=== PATIENT | female | born 1985 | race Caucasian/White ===

== ENCOUNTER 2016-12-20 11:32 | Observation (INO) | payer SELFPAY ==
[~2016-12-20] VITALS: Ht 165.1 cm; Wt 76.0 kg
[~2016-12-20 11:32] MED LIST: METH10TA PO; METHO500 PO; NAPR40TA PO; PAXI20TA26 PO; XANA2TAB2 PO
[2016-12-20 11:37] VITALS: BP 128/62; PULSE 74; RESP 17; TEMP 98.2; O2SAT 98
--- NOTE | 2016-12-20 11:45 | PD ---
Physical Exam Time Seen by Provider: 11:42 Narrative 31yo F w/ c/o pulsating pain from head that radiated to L chest and down R arm. Hx of similar event and told panic attack. Chewed xanax w/ some relief. C/o current L sided chest pain. w/SOB. Denies fever, vomiting. Patient stable. Patient seen in triage. Awaiting bed placement. Data Data Last Documented VS Vital Signs Date Time Temp Pulse Resp B/P Pulse Ox O2 Delivery O2 Flow Rate FiO2 12/20/16 11:37 98.2 74 17 128/62 98 MDM Supervised Visit with MARICRUZ: Ghislaine Gonzalez Dec 20, 2016 11:44
--- NOTE | 2016-12-20 11:56 | PD ---
HPI Chief Complaint: Chest Pain Time Seen by Provider: 11:53 Travel History International Travel<30 days: No Contact w/Intl Traveler<30days: No Traveled to known affect area: No History of Present Illness HPI 31-year-old female presents to the emergency department for evaluation of chest pain that started this morning while swinging her kids. She states she's had this in the past. She states whenever she has exertional activity, she will start with the pain. She states it started as a pulsating in her head and radiates down to her left arm and chest. The patient states she was seen previously a [facility] was told it was anxiety. The patient states the symptoms lasted approximately 5 minutes. She reports minimal discomfort at this time. She does report a significant family cardiac history reported by her grandmother of sudden cardiac at age 37. She denies any personal cardiac history. Patient does report a history of anxiety and panic attacks. Patient denies any alcohol or drug use. She denies any chance of reporting previous tubal ligation. She has no diaphoresis. No nausea or vomiting. She denies any recent surgery or travel. No leg edema. No hemoptysis. No history of DVT/PE. 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) Oral Surgery: Yes (WISDOM TEETH REMOVED) Tonsillectomy: Yes Social History Alcohol Use: No Tobacco Use: Yes (5-6 cigs a day) Substance Use: No (attends methadone clinic, HX:MARIJUANA, OPIATES ADDICTION ) Allergies-Medications (Allergen,Severity, Reaction): Coded Allergies: Bactrim (Verified Allergy, Severe, Rash, 12/20/16) Biaxin (Verified Allergy, Severe, HIVES, 12/20/16) Wellbutrin (Verified Allergy, Severe, Rash, 12/20/16) Zoloft (Verified Allergy, Severe, Rash, 12/20/16) Reported Meds & Prescriptions Reported Meds & Active Scripts Active Naproxen Sodium 550 Mg Tab 550 Mg PO BID Robaxin 500 Mg Tab (Methocarbamol) 500 Mg Tab 500 Mg PO TID PRN Reported Paxil (Paroxetine HCl) 20 Mg Tab 25 Mg PO DAILY Xanax 2 mg (Alprazolam) 2 Mg Tab 2 Mg PO TID Methadone Hcl (Methadone HCl) 10 Mg Tab 170 Mg PO DAILY Review of Systems Except as stated in HPI: all other systems reviewed are Neg Physical Exam Narrative GENERAL: Well-nourished, well-developed female patient, ambulatory. Afebrile. SKIN: Focused skin assessment warm/dry. HEAD: Normocephalic. Atraumatic. EYES: No scleral icterus. No injection or drainage. NECK: Supple, trachea midline. No JVD or lymphadenopathy. CARDIOVASCULAR: Regular rate and rhythm without murmurs, gallops, or rubs. Bilateral radial and pedal pulses 2+. RESPIRATORY: Breath sounds equal bilaterally. No accessory muscle use. Lungs sounds are clear to auscultation. GASTROINTESTINAL: Abdomen soft, non-tender, nondistended. MUSCULOSKELETAL: No cyanosis, or edema. BACK: Nontender without obvious deformity. No CVA tenderness. Data Data Last Documented VS Vital Signs Date Time Temp Pulse Resp B/P Pulse Ox O2 Delivery O2 Flow Rate FiO2 12/20/16 11:59 97 Room Air 12/20/16 11:59 77 115/76 123/78 12/20/16 11:59 18 12/20/16 11:37 98.2 Orders Electrocardiogram (12/20/16 11:51) Basic Metabolic Panel (Bmp) (12/20/16 11:51) Ckmb (Isoenzyme) Profile (12/20/16 11:51) Complete Blood Count With Diff (12/20/16 11:51) Magnesium (Mg) (12/20/16 11:51) Troponin I (12/20/16 11:51) Chest, Single Ap (12/20/16 11:51) Ecg Monitoring (12/20/16 11:51) Bilateral Bp Monitoring (12/20/16 11:51) Iv Access Insert/Monitor (12/20/16 11:51) Oximetry (12/20/16 11:51) Oxygen Administration (12/20/16 11:51) Aspirin Chew (Aspirin Chew) (12/20/16 12:00) Sodium Chloride 0.9% Flush (Ns Flush) (12/20/16 12:00) CKMB (12/20/16 12:02) CKMB% (12/20/16 12:02) Labs Laboratory Tests Test 12/20/16 12:02 White Blood Count 8.7 TH/MM3 Red Blood Count 4.43 MIL/MM3 Hemoglobin 11.4 GM/DL Hematocrit 34.8 % Mean Corpuscular Volume 78.7 FL Mean Corpuscular Hemoglobin 25.8 PG Mean Corpuscular Hemoglobin 32.8 % Concent Red Cell Distribution Width 18.8 % Platelet Count 297 TH/MM3 Mean Platelet Volume 8.5 FL Neutrophils (%) (Auto) 55.8 % Lymphocytes (%) (Auto) 33.1 % Monocytes (%) (Auto) 6.7 % Eosinophils (%) (Auto) 4.0 % Basophils (%) (Auto) 0.4 % Neutrophils # (Auto) 4.9 TH/MM3 Lymphocytes # (Auto) 2.9 TH/MM3 Monocytes # (Auto) 0.6 TH/MM3 Eosinophils # (Auto) 0.4 TH/MM3 Basophils # (Auto) 0.0 TH/MM3 CBC Comment DIFF FINAL Differential Comment Sodium Level 140 MEQ/L Potassium Level 3.6 MEQ/L Chloride Level 107 MEQ/L Carbon Dioxide Level 24.6 MEQ/L Anion Gap 8 MEQ/L Blood Urea Nitrogen 11 MG/DL Creatinine 0.81 MG/DL Estimat Glomerular Filtration 82 ML/MIN Rate Random Glucose 94 MG/DL Calcium Level 8.5 MG/DL Magnesium Level 2.0 MG/DL Total Creatine Kinase 309 U/L Troponin I LESS THAN 0.02 NG/ML MDM Medical Decision Making Medical Screen Exam Complete: Yes Emergency Medical Condition: Yes Medical Record Reviewed: Yes Interpretation(s) Last Impressions Chest X-Ray 12/20/16 1151 Signed Impressions: Service Date/Time: December 12:05 - CONCLUSION: No acute disease. Connor Cordero MD Differential Diagnosis Anxiety versus chest wall pain versus ACS Narrative Course 31-year-old female presents to the emergency department for evaluation of chest pain that occurred with exertion. She does report previous symptoms and significant family history of cardiac disease. Patient is PERC negative. EKG, CBC, BMP, CK, troponin, magnesium, chest x-ray are ordered and pending. She is given aspirin 162 mg by mouth. EKG shows SR, HR 65, no acute ST changes. CBC shows Hgb of 11.4, Hct 34.8. BMP shows no acute abnormality. CK is 309. Troponin is less than 0.02. Magnesium is 2.0. Chest x-ray shows no acute disease. I discussed results with the patient. I recommended 23 hour observation for chest pain center due to strong family cardiac history in symptoms with exertion only. The patient agrees with this. Diagnosis Primary Impression: Chest pain Qualified Code: R07.9 - Chest pain, unspecified type Admitting Information Admitting Physician Requests: Observation Bebe Castelan Dec 20, 2016 11:56
[2016-12-20 11:59] VITALS: BP_SYST 115; BP_SYST 123; BP_DIAS 76; BP_DIAS 78; PULSE 77; RESP 18; O2SAT 98
[2016-12-20] MEDS ORDERED: SODIUM CHLORIDE 0.9% FLUSH 10 ML FLUSH IVF PRN (12:00)
[2016-12-20] MEDS ORDERED: ASPIRIN 81 MG CHEW TAB PO ONE (12:00)
--- NOTE | 2016-12-20 12:17 | RADRPT ---
EXAM DATE/TIME: 12/20/2016 12:05 [facility] COMPARISON: No previous studies available for comparison. INDICATIONS : Chest pain. MEDICAL HISTORY : None. SURGICAL HISTORY : None. ENCOUNTER: Initial ACUITY: 1 day PAIN SCORE: 3/10 LOCATION: Bilateral chest FINDINGS: A single view of the chest demonstrates the lungs to be symmetrically aerated without evidence of mas s, infiltrate or effusion. The cardiomediastinal contours are unremarkable. Osseous structures are intact. CONCLUSION: No acute disease. Connor Cordero MD on December 20, 2016 at 12:14 Board Certified Radiologist. This report was verified electronically.
[2016-12-20 12:22] LABS: AUTOMATED NEUTROPHIL # 4.9 TH/MM3 (1.8-7.7); BASOPHIL % 0.4 % (0.0-2.0); EOSINOPHIL # 0.4 TH/MM3 (0-0.4); HEMATOCRIT 34.8 % (35.0-46.0); HEMO FLAGS DIFF FINAL; LYMPH % 33.1 % (9.0-44.0); LYMPHOCYTE # 2.9 TH/MM3 (1.0-4.8); MEAN CELL VOLUME 78.7 FL (80.0-100.0); MEAN CORPUSCULAR HEMOGLOBIN 25.8 PG (27.0-34.0); MEAN CORPUSCULAR HGB CONC 32.8 % (32.0-36.0); MONO % 6.7 % (0.0-8.0); NEUT % 55.8 % (16.0-70.0); PLATELET COUNT 297 TH/MM3 (150-450); RED BLOOD COUNT 4.43 MIL/MM3 (4.00-5.30); RED CELL DISTRIBUTION WIDTH 18.8 % (11.6-17.2); WHITE BLOOD COUNT 8.7 TH/MM3 (4.0-11.0)
[2016-12-20 12:37] LABS: ANION GAP 8 MEQ/L (5-15); BICARBONATE 24.6 MEQ/L (21.0-32.0); BLOOD UREA NITROGEN 11 MG/DL (7-18); CHLORIDE 107 MEQ/L (98-107); GLOMERULAR FILTRATION RATE 82 ML/MIN (>89); POTASSIUM 3.6 MEQ/L (3.5-5.1); SODIUM (NA) 140 MEQ/L (136-145)
[2016-12-20 12:40] LABS: CREATINE KINASE 309 U/L (26-192)
[2016-12-20 12:52] LABS: CKMB 0.9 NG/ML (0.5-3.6)
[2016-12-20 13:36] VITALS: BP 115/76; PULSE 70; RESP 18; O2SAT 98
[2016-12-20] MEDS ORDERED: PAXI20TA PO (13:43)
[2016-12-20] MEDS ORDERED: XANA2TAB2 PO (13:43)
[2016-12-20] MEDS ORDERED: ADDE20 PO (13:43)
[2016-12-20] MEDS ORDERED: METH40TA PO (13:43)
[2016-12-20 14:17] VITALS: BP 112/77; PULSE 65; RESP 20; TEMP 96.2; O2SAT 98
--- NOTE | 2016-12-20 15:41 | HHI.DCPOC ---
Discharge Care Plan Diagnosis: (1) Chest pain, atypical Goals to Promote Your Health * To prevent worsening of your condition and complications * To maintain your health at the optimal level Directions to Meet Your Goals Take your medications as prescribed Follow your dietary instruction Follow activity as directed Keep your appointments as scheduled Take your immunizations and boosters as scheduled If your symptoms worsen call your PCP, if no PCP go to Urgent Care Center or Emergency Room Smoking is Dangerous to Your Health. Avoid second hand smoke Call the 24-hour hour crisis hotline for domestic abuse at Jimmy Henning Dec 20, 2016 15:41
[2016-12-20] MEDS ORDERED: SODIUM CHLORIDE 0.9% FLUSH 5 ML FLUSH IVF PRN (15:45)
[2016-12-20] MEDS ORDERED: ACETAMINOPHEN/HYDROcodone 325 MG/7.5 MG TAB PO PRN (15:45)
[2016-12-20] MEDS ORDERED: ONDANSETRON HCL 4 MG/2 ML VIAL IV PRN (15:45)
[2016-12-20] MEDS ORDERED: ACETAMINOPHEN 500 MG CPLT PO PRN (15:45)
--- NOTE | 2016-12-20 15:55 | HHI.HP ---
HPI Primary Care Physician No Primary Care Physician Chief Complaint Chest pain History of Present Illness This is a 31-year-old female that presents to ED via private vehicle for a second opinion on her chest discomfort. Patient states she was at [facility] about a month ago for the same and told anxiety. She states she's had these symptoms for the past year. She describes a burning sensation from her head that radiates into her neck and then anterior chest turning to sharp discomfort that will last 5 minutes. Sometimes occurs under stressful situations and other times it occurs with exertion while outside doing something. No social shortness breath, nausea, or diaphoresis. Denies history of CAD. Denies . Denies recent illnesses. Denies recent travel. Review of Systems General: Patient denies fevers, chills recent, and recent travel HEENT: Patient denies headache, sore throat, difficulty swallowing. Cardiovascular: Has the chest discomfort as mentioned above. Denies sensation of heart beating rapidly or irregularly. No syncope. Denies diaphoresis. Respiratory: Denies shortness of breath or inspirational chest discomfort. Denies coughing wheezing or hemoptysis. GI: Patient denies nausea, vomiting, diarrhea, abdominal pain, bloody stools. Musculoskeletal: Patient denies joint pain or edema. Denies calf pain or edema. Neurovascular: Patient denies numbness, tingling, weakness in extremities. Denies headache. Endocrine: Denies polyuria and polydipsia. Hematologic: Denies easy bruising. Skin: Denies rash or itching. Past Family Social History Allergies: Coded Allergies: Bactrim (Verified Allergy, Severe, Rash, 12/20/16) Biaxin (Verified Allergy, Severe, HIVES, 12/20/16) Wellbutrin (Verified Allergy, Severe, Rash, 12/20/16) Zoloft (Verified Allergy, Severe, Rash, 12/20/16) Past Medical History ADHD, bipolar disorder, tobacco abuse. Denies hypertension, hyperlipidemia, diabetes, and CAD. Past Surgical History Tubal ligation. Reported Medications Reported Meds & Active Scripts Active Reported Adderall (Amphetamine-Dextroamphetamine) 20 Mg Tab 30 Mg PO DAILY PRN Avoid late evening doses. Paxil (Paroxetine HCl) 20 Mg Tab 20 Mg PO DAILY Methadone (Methadone HCl) 40 Mg Tab 160 Mg PO DAILY Xanax (Alprazolam) 2 Mg Tab 2 Mg PO TID Active Ordered Medications Current Medications Medications (Trade) Dose Ordered Sig/Brit Route Start Time Stop Time Status Last Admin (NS Flush) 2 ml UNSCH PRN IVF 12/20/16 12:00 (NS Flush) 2 ml UNSCH PRN IVF 12/20/16 15:45 UNV (NS Flush) 2 ml BID IVF 12/20/16 21:00 UNV (Tylenol) 500 mg Q4H PRN PO 12/20/16 15:45 UNV (Sebago 7.5-325 Mg) 1 tab Q4H PRN PO 12/20/16 15:45 UNV (Zofran Inj) 4 mg Q6H PRN IV 12/20/16 15:45 UNV Family History No immediate family history of CAD but states that her grandmother suddenly at the age of 37 of a myocardial infarction. Social History Patient smokes about one quarter pack of cigarettes daily. She uses cocaine occasionally. Physical Exam Vital Signs Vital Signs Date Time Temp Pulse Resp B/P Pulse Ox O2 Delivery O2 Flow Rate FiO2 12/20/16 14:17 96.2 65 20 112/77 98 12/20/16 13:36 70 18 115/76 98 Room Air 12/20/16 11:59 97 Room Air 12/20/16 11:59 77 115/76 123/78 12/20/16 11:59 18 98 Room Air 12/20/16 11:47 18 99 Room Air 12/20/16 11:37 98.2 74 17 128/62 98 Physical Exam GENERAL: This is a well-nourished, well-developed patient, in no apparent distress. Patient speaks in clear complete sentences. Patient is pleasant. HEENT: Head is atraumatic and normocephalic. Neck is supple without lymphadenopathy and trachea is midline. No JVD or carotid bruits. CARDIOVASCULAR: Regular rate and rhythm without murmurs, gallops, or rubs. RESPIRATORY: Clear to auscultation. Breath sounds equal bilaterally. No wheezes , rales, or rhonchi. Chest wall is nontender. No use of accessory muscles. GASTROINTESTINAL: Abdomen is nontender, nondistended. Abdomen soft. No obvious pulsatile mass or bruit. No CVA tenderness. Strong femoral pulses bilaterally. Normal bowel sounds in all quadrants. MUSCULOSKELETAL: Patient is moving upper and lower extremities freely. No calf tenderness or edema, no Homans sign. Strong pulses in upper and lower extremities. NEUROLOGICAL: Patient is alert and oriented. Cranial nerves 2-12 are grossly intact. No focal deficits and speech is clear. SKIN: No rash and turgor is normal. Laboratory Laboratory Tests Test 12/20/16 12:02 White Blood Count 8.7 Red Blood Count 4.43 Hemoglobin 11.4 Hematocrit 34.8 Mean Corpuscular Volume 78.7 Mean Corpuscular Hemoglobin 25.8 Mean Corpuscular Hemoglobin 32.8 Concent Red Cell Distribution Width 18.8 Platelet Count 297 Mean Platelet Volume 8.5 Neutrophils (%) (Auto) 55.8 Lymphocytes (%) (Auto) 33.1 Monocytes (%) (Auto) 6.7 Eosinophils (%) (Auto) 4.0 Basophils (%) (Auto) 0.4 Neutrophils # (Auto) 4.9 Lymphocytes # (Auto) 2.9 Monocytes # (Auto) 0.6 Eosinophils # (Auto) 0.4 Basophils # (Auto) 0.0 CBC Comment DIFF FINAL Differential Comment Sodium Level 140 Potassium Level 3.6 Chloride Level 107 Carbon Dioxide Level 24.6 Anion Gap 8 Blood Urea Nitrogen 11 Creatinine 0.81 Estimat Glomerular Filtration 82 Rate Random Glucose 94 Calcium Level 8.5 Magnesium Level 2.0 Total Creatine Kinase 309 Creatine Kinase MB 0.9 Creatine Kinase MB % 0.3 Troponin I LESS THAN 0.02 Result Diagram: 12/20/16 1202 12/20/16 1202 Imaging Last Impressions Chest X-Ray 12/20/16 1151 Signed Impressions: Service Date/Time: December 12:05 - CONCLUSION: No acute disease. Connor Cordero MD Course Initial EKG is sinus rhythm without significant ST segment depressions or elevations. Assessment and Plan Assessment and Plan * Atypical chest pain: Patient had first set of cardiac enzymes and EKGs. Her symptoms are very atypical. She has been seen by Dr. Williamson of cardiology in the chest pain center and will be discharged home at this time. She should make arrangements to follow-up with a local primary care physician. * Tobacco abuse: Patient has been counseled on importance of smoking cessation. Patient is stable at this time. She is agreeable to this plan. Jimmy Henning Dec 20, 2016 15:55
[2016-12-20] MEDS ORDERED: SODIUM CHLORIDE 0.9% FLUSH 5 ML FLUSH IVF SCH (21:00)
--- NOTE | 2016-12-21 19:33 | EKG ---
Date Performed: 12/20/2016 Time Performed: 11:56:51 PTAGE: 31 years EKG: Sinus rhythm NONSPECIFIC T-WAVE ABNORMALITY Compared to prior tracing no significant change BORDERLINE ECG PREVIOUS TRACING : 03/24/2015 11.42 DOCTOR: Syed Cr Interpretating Date/Time 12/21/2016 19:31:27
== END 2016-12-20 17:08 | disposition home or self-care (01) ==
LOC: NEPD 11:32 → NEDA 12:46 → NEPHCDU 13:58
DX: R07.9 Chest pain, unspecified (principal); R06.02 Shortness of breath; F41.0 Panic disorder [episodic paroxysmal anxiety]; F90.9 Attention-deficit hyperactivity disorder, unspecified type; F31.9 Bipolar disorder, unspecified; F43.10 Post-traumatic stress disorder, unspecified; F17.210 Nicotine dependence, cigarettes, uncomplicated; F11.20 Opioid dependence, uncomplicated; Z79.899 Other long term (current) drug therapy; R94.31 Abnormal electrocardiogram [ECG] [EKG]
CPT/HCPCS: 71010; 80048; 82550; 82552; 83735; 84484; 85025; 93005; 99285; G0378

== ENCOUNTER 2016-12-30 10:45 | Emergency (ER) | payer SELFPAY ==
[~2016-12-30] VITALS: Ht 165.1 cm; Wt 75.5 kg
[~2016-12-30 10:45] MED LIST changes: +ADDE20 PO; -METH10TA PO; +METH40TA PO; -METHO500 PO; -NAPR40TA PO; +PAXI20TA PO; -PAXI20TA26 PO
[2016-12-30 10:47] VITALS: BP 137/87; PULSE 104; RESP 17; TEMP 98.1; O2SAT 98
[2016-12-30] MEDS ORDERED: ACETAMINOPHEN 500 MG CPLT PO ONE (11:00)
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
[2016-12-30] MEDS ORDERED: NAPR500T PO (12:41)
[2016-12-30 13:13] VITALS: RESP 20
== END 2016-12-30 13:45 | disposition home or self-care (01) ==
LOC: NEPD 10:45
DX: S20.211A Contusion of right front wall of thorax, initial encounter (principal); M25.511 Pain in right shoulder; F17.210 Nicotine dependence, cigarettes, uncomplicated; Y04.0XXA Assault by unarmed brawl or fight, initial encounter; Y92.511 Restaurant or cafe as the place of occurrence of the external cause
CPT/HCPCS: 71020; 73000; 99283

== ENCOUNTER 2017-03-02 10:14 | Emergency (ER) | payer OTHER ==
[~2017-03-02] VITALS: Ht 165.1 cm; Wt 75.0 kg
[~2017-03-02 10:14] MED LIST changes: +NAPR500T PO
[2017-03-02 10:15] VITALS: BP 153/94; PULSE 110; RESP 20; TEMP 98.8; O2SAT 96
[2017-03-02] MEDS ORDERED: PERI0.126 SWISH-SPIT (10:56)
[2017-03-02] MEDS ORDERED: AMOX500C PO (10:56)
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
== END 2017-03-02 11:15 | disposition home or self-care (01) ==
LOC: NEPK 10:14
DX: S01.551D Open bite of lip, subsequent encounter (principal); Z72.0 Tobacco use; Z86.59 Personal history of other mental and behavioral disorders; V89.2XXD Person injured in unspecified motor-vehicle accident, traffic, subsequent encounter; W22.10XD Striking against or struck by unspecified automobile airbag, subsequent encounter
CPT/HCPCS: 99283

== ENCOUNTER 2017-05-02 20:40 | Emergency (ER) | payer SELFPAY ==
[~2017-05-02] VITALS: Ht 165.1 cm; Wt 70.0 kg
[~2017-05-02 20:40] MED LIST changes: +AMOX500C PO; -NAPR500T PO; -PAXI20TA PO; +PERI0.126 SWISH-SPIT
[2017-05-02 20:44] VITALS: BP 126/80; PULSE 86; RESP 18; TEMP 98.3; O2SAT 97
--- NOTE | 2017-05-02 22:24 | PD ---
Physical Exam Time Seen by Provider: 22:22 Narrative 32yo F c/o generalized pain from not taking methadone x 2 days and is requesting methadone. Has been on methadone x7 years. She is also taking Xanax. Does not want detox. Denies SI or HI. Says she has nowhere to go tonight. Patient seen in triage. VS reviewed. Awaiting bed placement. Data Data Last Documented VS Vital Signs Date Time Temp Pulse Resp B/P (MAP) Pulse Ox O2 Delivery O2 Flow Rate FiO2 05/02/17 20:44 98.3 86 18 126/80 (95) 97 Room Air [facility] Supervised Visit with MARICRUZ: Ghislaine Gonzalez May 02, 2017 22:24
[2017-05-03] MEDS ORDERED: PROM25TA10 PO (03:23)
--- NOTE | 2017-05-03 03:28 | PD ---
HPI Chief Complaint: Medical Clearance Time Seen by Provider: 03:22 Travel History International Travel<30 days: No Contact w/Intl Traveler<30days: No Traveled to known affect area: No History of Present Illness HPI Examined in the presence of a female nurse. 32-year-old female presents for evaluation. She reports that she has been on methadone for years but she was unable to get to the methadone clinic for the past 3 days. She is now having generalized myalgias and nausea. Symptoms are aggravated by the absence of methadone. She has no other complaints at this time. PFSH Past Medical History Hx Anticoagulant Therapy: No ADHD: Yes Bipolar Disorder: Yes Anxiety: Yes (PTSD) Depression: Yes Heart Rhythm Problems: No Cardiac Catheterization: No Cardiovascular Problems: No High Cholesterol: No Chemotherapy: No Congestive Heart Failure: No Cerebrovascular Accident: No Diabetes: No Diminished Hearing: No Psychiatric: Yes (BI-POLAR, PTSD) Respiratory: No Immunizations Current: Yes ?: Not LMP: 04/29/17 Menopausal: No : 6 Para: 6 Miscarriage: 1 : 0 Dilation and Curettage (D&C): Yes (APR 2010) Tubal Ligation: Yes Past Surgical History Section: Yes (X1) Coronary Artery Bypass Graft: No Eye Surgery: Yes (CORRECTIVE SURGERY FOR STRABISMUS) Oral Surgery: Yes (WISDOM TEETH REMOVED) Tonsillectomy: Yes Social History Alcohol Use: No Tobacco Use: Yes (5-6 cigs a day) Substance Use: No (attends methadone clinic, HX:MARIJUANA, OPIATES ADDICTION ) Allergies-Medications (Allergen,Severity, Reaction): Coded Allergies: adhesive tape (Verified Allergy, Severe, 05/02/17) bupropion (Unverified Allergy, Severe, Rash, 04/16/17) clarithromycin (Unverified Allergy, Severe, HIVES, 04/16/17) sertraline (Unverified Allergy, Severe, Rash, 04/16/17) sulfamethoxazole (Unverified Allergy, Severe, Rash, 04/16/17) trimethoprim (Unverified Allergy, Severe, Rash, 04/16/17) Reported Meds & Prescriptions Reported Meds & Active Scripts Active Phenergan (Promethazine HCl) 25 Mg Tablet 25 Mg PO Q6H PRN Peridex Liq (Chlorhexidine Gluconate (Mouth) Liq) 0.12% Soln 15 Ml SWISH-SPIT BID 10 Days Amoxicillin 500 Mg Cap 500 Mg PO BID 7 Days Reported Adderall (Amphetamine-Dextroamphetamine) 20 Mg Tab 30 Mg PO DAILY PRN Avoid late evening doses. Methadone (Methadone HCl) 40 Mg Tab 160 Mg PO DAILY Xanax (Alprazolam) 2 Mg Tab 2 Mg PO TID Review of Systems Except as stated in HPI: all other systems reviewed are Neg Physical Exam Narrative GENERAL: Well-nourished female in no acute distress SKIN: Warm and dry. HEAD: Atraumatic. Normocephalic. EYES: Pupils equal and round. No scleral icterus. No injection or drainage. ENT: No nasal bleeding or discharge. Mucous membranes pink and moist. NECK: Trachea midline. No JVD. CARDIOVASCULAR: Regular rate and rhythm. No murmur appreciated. RESPIRATORY: No accessory muscle use. Clear to auscultation. Breath sounds equal bilaterally. GASTROINTESTINAL: Abdomen soft, non-tender, nondistended. Hepatic and splenic margins not palpable. MUSCULOSKELETAL: No obvious deformities. No clubbing. No cyanosis. No edema. NEUROLOGICAL: Awake and alert. No obvious cranial nerve deficits. Motor grossly within normal limits. Normal speech. PSYCHIATRIC: Appropriate mood and affect; insight and judgment normal. Data Data Last Documented VS Vital Signs Date Time Temp Pulse Resp B/P (MAP) Pulse Ox O2 Delivery O2 Flow Rate FiO2 05/02/17 20:44 98.3 86 18 126/80 (95) 97 Room Air Orders Orders Ketorolac Inj (Toradol Inj) (05/03/17 03:30) Ondansetron Odt (Zofran Odt) (05/03/17 03:30) [facility] Medical Decision Making Medical Screen Exam Complete: Yes Emergency Medical Condition: Yes Medical Record Reviewed: Yes Differential Diagnosis Opiate withdrawal, medication request, myalgias, rhabdomyolysis Narrative Course 32-year-old female presents with myalgias and Zofran, she was unable to get to the methadone clinic for the past 3 days and is withdrawing. Physical examination is unremarkable. It was recommended that the patient follow-up with the methadone clinic in the morning. She will be given Zofran and Toradol here and discharged with a short course of Phenergan. Diagnosis Primary Impression: Myalgia Additional Impression: Nausea Additional Instructions: Follow-up with methadone clinic. Phenergan for nausea. Return for any emergent medical conditions. Med/Other Pt SpecificInfo: Prescription(s) given Scripts Promethazine (Phenergan) 25 Mg Tablet 25 MG PO Q6H Y for NAUSEA OR VOMITING, #15 TAB 0 Refills Prov: Marisabel Betancourt DO 05/03/17 Disposition: 01 DISCHARGE HOME Condition: Stable Ghassan Ortiz May 03, 2017 03:28
[2017-05-03] MEDS ORDERED: ONDANSETRON ODT 4 MG TAB PO ONE (03:30)
[2017-05-03] MEDS ORDERED: KETOROLAC TROMETHAMINE 60 MG/2 ML (IM) VIAL IM ONE (03:30)
== END 2017-05-03 04:45 | disposition home or self-care (01) ==
LOC: NEPD 20:40
DX: M79.1 Myalgia (principal); R11.0 Nausea; F19.939 Other psychoactive substance use, unspecified with withdrawal, unspecified; F31.9 Bipolar disorder, unspecified; F43.10 Post-traumatic stress disorder, unspecified; F17.210 Nicotine dependence, cigarettes, uncomplicated; Z79.899 Other long term (current) drug therapy; Z88.2 Allergy status to sulfonamides; Z88.8 Allergy status to other drugs, medicaments and biological substances
CPT/HCPCS: 96372; 99284; J1885

== ENCOUNTER 2018-02-18 08:17 | Emergency (ER) | payer SELFPAY ==
[2018-02-18] VITALS (8 sets, daily range): BP systolic 89–138; BP diastolic 52–87; PULSE 16–104; RESP 15–26; TEMP 99.3; O2SAT 95–100
[~2018-02-18] VITALS: Ht 167.6 cm; Wt 80.0 kg
[~2018-02-18 08:17] MED LIST changes: -ADDE20 PO; -AMOX500C PO; -PERI0.126 SWISH-SPIT
[2018-02-18] MEDS ORDERED: XANA1TAB2 PO (08:47)
[2018-02-18] MEDS ORDERED: SODIUM CHLORIDE 0.9% FLUSH 10 ML FLUSH IVF PRN (09:00)
--- NOTE | 2018-02-18 09:06 | PD ---
HPI Chief Complaint: Chest Pain Time Seen by Provider: 08:29 Travel History International Travel<30 days: No Contact w/Intl Traveler<30days: No Traveled to known affect area: No History of Present Illness HPI The patient was seen and examined in the presence of the nurse. Patient is having panic problems. She is hyperventilating and tearful and panicky when I enter the room. She has been on methadone for 7 years. While at the methadone clinic this morning, she developed pain in her neck which radiated into her chest. She said the exact same kind of spells like this for many years. They usually are associated with anxiety and panic. Her skin is hypersensitive over the chest when this happens and she wants to take her shirt off so it does not irritate her chest. No history of cardiac disease. No history of ever using IV drugs. Severity was moderate but has resolved in terms of her neck and chest pain. No alleviating factors. No exacerbating factors. Duration 5 minutes PFSH Past Medical History Hx Anticoagulant Therapy: No ADHD: Yes Bipolar Disorder: Yes Anxiety: Yes (PTSD) Depression: Yes Heart Rhythm Problems: No Cardiac Catheterization: No Cardiovascular Problems: No High Cholesterol: No Chemotherapy: No Congestive Heart Failure: No Cerebrovascular Accident: No Diabetes: No Diminished Hearing: No Medical other: Yes (Drug Abuse To Opiates, on Methadone) Psychiatric: Yes (BI-POLAR, PTSD) Respiratory: No Immunizations Current: Yes Tetanus Vaccination: < 5 Years Influenza Vaccination: No ?: Not Menopausal: No : 6 Para: 6 Miscarriage: 1 : 0 Dilation and Curettage (D&C): Yes (APR 2010) Tubal Ligation: Yes (2013) Past Surgical History Section: Yes Coronary Artery Bypass Graft: No Ear Surgery: Yes Eye Surgery: Yes (CORRECTIVE SURGERY FOR STRABISMUS) Gynecologic Surgery: Yes (TUBAL LIGATION ) Oral Surgery: Yes (WISDOM TEETH REMOVED) Tonsillectomy: Yes Family History Family Myocardial Infarction: Yes (grandmother and grandfather of heart attack) Social History Alcohol Use: No Tobacco Use: Yes (1/2 pack per day) Substance Use: No (Hx : opiates , on Methadone ) Allergies-Medications (Allergen,Severity, Reaction): Coded Allergies: adhesive tape (Verified Allergy, Severe, 02/18/18) bupropion (Unverified Allergy, Severe, Rash, 02/18/18) clarithromycin (Unverified Allergy, Severe, HIVES, 02/18/18) sertraline (Unverified Allergy, Severe, Rash, 02/18/18) sulfamethoxazole (Unverified Allergy, Severe, Rash, 02/18/18) trimethoprim (Unverified Allergy, Severe, Rash, 02/18/18) Reported Meds & Prescriptions Reported Meds & Active Scripts Active Reported Xanax (Alprazolam) 1 Mg Tab 1 Mg PO Q8H PRN Methadone (Methadone HCl) 40 Mg Tab 160 Mg PO DAILY Review of Systems General / Constitutional: No: Fever Eyes: No: Visual changes HENT: Positive: Neck Pain, No: Headaches Cardiovascular: Positive: Chest Pain or Discomfort Respiratory: No: Shortness of Breath Gastrointestinal: No: Abdominal Pain Genitourinary: No: Dysuria Musculoskeletal: No: Pain Skin: No Rash Neurologic: No: Weakness Psychiatric: Positive: Anxiety, No: Depression Endocrine: No: Polydipsia Hematologic/Lymphatic: No: Easy Bruising Physical Exam Narrative GENERAL: Well-nourished, well-developed patient who is tearful and hyperventilating SKIN: Focused skin assessment reveals no rash and nodules. Skin is Warm and dry. HEAD: Atraumatic. Normocephalic. EYES: Pupils equal and round. No scleral icterus. No injection or drainage. ENT: No nasal bleeding or discharge. Mucous membranes pink and moist. NECK: Trachea midline. No JVD. CARDIOVASCULAR: Regular rate and rhythm. No murmur appreciated. RESPIRATORY: No accessory muscle use. Clear to auscultation. Breath sounds equal bilaterally. GASTROINTESTINAL: Abdomen soft, non-tender, nondistended. Hepatic and splenic margins not palpable. MUSCULOSKELETAL: No obvious deformities. No clubbing. No cyanosis. No edema. NEUROLOGICAL: Awake and alert. No obvious cranial nerve deficits. Motor grossly within normal limits. Normal speech. PSYCHIATRIC: Anxious mood and affect; insight and judgment reduced . Data Data Last Documented VS Vital Signs Date Time Temp Pulse Resp B/P (MAP) Pulse Ox O2 Delivery O2 Flow Rate FiO2 02/18/18 12:22 65 18 92/59 (70) 96 02/18/18 12:00 Room Air 02/18/18 08:21 99.3 Orders Orders Electrocardiogram (02/18/18 08:50) Basic Metabolic Panel (Bmp) (02/18/18 08:50) Ckmb (Isoenzyme) Profile (02/18/18 08:50) Complete Blood Count With Diff (02/18/18 08:50) Troponin I (02/18/18 08:50) Ecg Monitoring (02/18/18 08:50) Iv Access Insert/Monitor (02/18/18 08:50) Oximetry (02/18/18 08:50) Sodium Chloride 0.9% Flush (Ns Flush) (02/18/18 09:00) Ed Urine Pregnancytest Poc (02/18/18 08:50) Urinalysis - C+S If Indicated (02/18/18 08:50) Chest, Single Ap (02/18/18 ) Drug Screen, Random Urine (02/18/18 08:50) Urine Culture (02/18/18 08:30) Sodium Chlor 0.9% 1000 Ml Inj (Ns 1000 M (02/18/18 11:30) Labs Laboratory Tests Test 02/18/18 08:30 02/18/18 08:45 Urine Color [place] Urine Turbidity CLOUDY Urine pH 5.0 Urine Specific [place] 1.026 Urine Protein 30 mg/dL Urine Glucose (UA) NEG mg/dL Urine Ketones NEG mg/dL Urine Occult Blood NEG Urine Nitrite NEG Urine Bilirubin NEG Urine Urobilinogen 2.0 mg/dL Urine Leukocyte Esterase TRACE Urine RBC 2 /hpf Urine WBC 7 /hpf Urine Squamous Epithelial Cells 7 /hpf Urine Bacteria MOD /hpf Urine Mucus MANY /lpf Microscopic Urinalysis Comment CULTURE INDICATED Urine Opiates Screen NEG Urine Barbiturates Screen NEG Urine Amphetamines Screen NEG Urine Benzodiazepines Screen POS Urine Cocaine Screen NEG Urine Cannabinoids Screen NEG White Blood Count 11.0 TH/MM3 Red Blood Count 4.97 MIL/MM3 Hemoglobin 13.5 GM/DL Hematocrit 40.9 % Mean Corpuscular Volume 82.4 FL Mean Corpuscular Hemoglobin 27.1 PG Mean Corpuscular Hemoglobin Concent 32.9 % Red Cell Distribution Width 15.4 % Platelet Count 394 TH/MM3 Mean Platelet Volume 8.3 FL Neutrophils (%) (Auto) 72.2 % Lymphocytes (%) (Auto) 19.6 % Monocytes (%) (Auto) 5.7 % Eosinophils (%) (Auto) 2.2 % Basophils (%) (Auto) 0.3 % Neutrophils # (Auto) 7.9 TH/MM3 Lymphocytes # (Auto) 2.2 TH/MM3 Monocytes # (Auto) 0.6 TH/MM3 Eosinophils # (Auto) 0.2 TH/MM3 Basophils # (Auto) 0.0 TH/MM3 CBC Comment DIFF FINAL Differential Comment Blood Urea Nitrogen 10 MG/DL Creatinine 0.93 MG/DL Random Glucose 127 MG/DL Calcium Level 9.2 MG/DL Sodium Level 139 MEQ/L Potassium Level 3.8 MEQ/L Chloride Level 104 MEQ/L Carbon Dioxide Level 22.5 MEQ/L Anion Gap 13 MEQ/L Estimat Glomerular Filtration Rate 69 ML/MIN Total Creatine Kinase 63 U/L Troponin I LESS THAN 0.02 NG/ML MDM Medical Decision Making Medical Screen Exam Complete: Yes Emergency Medical Condition: Yes Medical Record Reviewed: Yes Differential Diagnosis Differential diagnosis includes [place], angina, pericarditis, pleurisy, GERD, anxiety. Narrative Course I have reviewed the patient's electronic medical record. IV placed and labs sent Reviewed her EKG which shows sinus rhythm without ST elevation or ectopy Presentation does not seem consistent with cardiac cause chest pain Workup here is negative including general labs and metabolic studies and cardiac enzymes. Chest x-ray is negative On recheck the patient is asymptomatic. She did have some right low back pain without injury. She has no urinary complaints. We will culture her urine but I would not throw antibiotics at her based on low clinical suspicion this is infectious. She does have baseline low blood pressures. Her pressures are in the 90s systolic. She is not dizzy or lightheaded. I gave her a liter of saline IV and she is well-hydrated. She is ambulating around the department without any symptoms. She wants to go home. Diagnosis Primary Impression: Chest pain, atypical Additional Impressions: Low back pain Qualified Codes: M54.5 - Low back pain Panic attack Additional Instructions: The patient was advised to follow up with their physician and return if they worsen. Med/Other Pt SpecificInfo: Other Disposition: 01 DISCHARGE HOME Condition: Stable Vladimir Sims MD Feb 18, 2018 09:06
[2018-02-18 09:34] LABS: AUTOMATED NEUTROPHIL # 7.9 TH/MM3 (1.8-7.7); BASOPHIL % 0.3 % (0.0-2.0); EOSINOPHIL # 0.2 TH/MM3 (0-0.4); EOSINOPHIL % 2.2 % (0.0-4.0); HEMATOCRIT 40.9 % (35.0-46.0); HEMOGLOBIN 13.5 GM/DL (11.6-15.3); LYMPH % 19.6 % (9.0-44.0); LYMPHOCYTE # 2.2 TH/MM3 (1.0-4.8); MEAN CELL VOLUME 82.4 FL (80.0-100.0); MEAN CORPUSCULAR HEMOGLOBIN 27.1 PG (27.0-34.0); MEAN CORPUSCULAR HGB CONC 32.9 % (32.0-36.0); MEAN PLATELET VOLUME 8.3 FL (7.0-11.0); MONO % 5.7 % (0.0-8.0); MONOCYTE # 0.6 TH/MM3 (0-0.9); NEUT % 72.2 % (16.0-70.0); PLATELET COUNT 394 TH/MM3 (150-450); RED BLOOD COUNT 4.97 MIL/MM3 (4.00-5.30); RED CELL DISTRIBUTION WIDTH 15.4 % (11.6-17.2)
[2018-02-18 09:44] LABS: BACTERIA, URINE MOD /hpf; BILIRUBIN, URINE NEG (NEG); BLOOD, URINE NEG (NEG); GLUCOSE,URINE NEG (NEG); KETONE, URINE NEG (NEG); MUCUS URINE MANY /lpf (OCC); NITRITE,URINE NEG (NEG); SQUAMOUS EPITHELIAL CELL URINE 7 /hpf (0-5); URINE COLOR Amber (YELLW/STRAW); URINE LEUKOCYTE ESTERASE TRACE (NEG)
[2018-02-18 09:48] LABS: BICARBONATE 22.5 MEQ/L (21.0-32.0); BLOOD UREA NITROGEN 10 MG/DL (7-18); CALCIUM 9.2 MG/DL (8.5-10.1); CHLORIDE 104 MEQ/L (98-107); CREATININE 0.93 MG/DL (0.50-1.00); GLOMERULAR FILTRATION RATE 69 ML/MIN (>89); GLUCOSE,RANDOM 127 MG/DL (74-106); SODIUM (NA) 139 MEQ/L (136-145)
--- NOTE | 2018-02-18 09:52 | RADRPT ---
EXAM DATE: 02/18/2018 9:41 AM EDT AGE/SEX: 33 years / Female INDICATIONS: Chest pain this morning. CLINICAL DATA: This is the patient's initial encounter. Patient reports that signs and symptoms have been present for 1 day and indicates a pain score of 9/10. MEDICAL/SURGICAL HISTORY: None. None. COMPARISON: [facility] [place], CHEST SINGLE AP, 12/20/2016. . FINDINGS: A single AP view of the chest demonstrates the lungs to be symmetrically aerated without evidence of mass, infiltrate or effusion. The lungs are mildly hyperaerated bilaterally. The cardiomediastinal c ontours are unremarkable. Osseous structures are intact. CONCLUSION: No acute intrathoracic disease. Stable examination. Electronically signed by: Asa Salazar MD 02/18/2018 9:51 AM EDT
[2018-02-18 09:53] LABS: TROPONIN I LESS THAN 0.02 NG/ML (0.02-0.05)
[2018-02-18] MEDS ORDERED: SODIUM CHLOR 0.9% 1000 ML INJ 1,000 ML IV ONE (11:30)
--- NOTE | 2018-02-18 17:03 | EKG ---
Date Performed: 02/18/2018 Time Performed: 08:41:58 PTAGE: 33 years EKG: Sinus rhythm POSSIBLE LEFT ATRIAL ENLARGEMENT NONSPECIFIC T-WAVE ABNORMALITY BORDERLINE ECG PREVIOUS TRACING : 12/20/2016 11.56 Since the previous tracing, no significant change noted DOCTOR: Haile Rangel Interpretating Date/Time 02/18/2018 17:01:05
== END 2018-02-18 13:32 | disposition home or self-care (01) ==
LOC: NEPC 08:17
DX: R07.89 Other chest pain (principal); M54.5 Low back pain; F41.0 Panic disorder [episodic paroxysmal anxiety]; F19.90 Other psychoactive substance use, unspecified, uncomplicated; M54.2 Cervicalgia; R94.31 Abnormal electrocardiogram [ECG] [EKG]; F90.9 Attention-deficit hyperactivity disorder, unspecified type; F31.9 Bipolar disorder, unspecified; F43.10 Post-traumatic stress disorder, unspecified; F41.9 Anxiety disorder, unspecified; F17.200 Nicotine dependence, unspecified, uncomplicated; Z79.899 Other long term (current) drug therapy; Z88.2 Allergy status to sulfonamides; Z88.8 Allergy status to other drugs, medicaments and biological substances
CPT/HCPCS: 71045; 80048; 80307; 81001; 82550; 84484; 84703; 85025; 87086; 93005; 96360; 99285; J7030